=== PATIENT | female | born 1965 | race Caucasian/White ===

== ENCOUNTER 2023-01-23 09:53 | Outpatient (CLI) | payer OTHER, SELFPAY ==
--- NOTE | 2023-01-23 11:16 | W.ANESCHARGE ---
Anesthesia Charges Start Date/Time Anesthesia Start Date: 01/23/23 Anesthesia Start Time: 10:47 Stop Date/Time Anesthesia Stop Date: 01/23/23 Anesthesia Stop Time: 11:17
--- NOTE | 2023-01-23 11:38 | W.ANESCHARGE ---
Anesthesia Charges Start Date/Time Anesthesia Start Date: 01/23/23 Anesthesia Start Time: 10:47 Stop Date/Time Anesthesia Stop Date: 01/23/23 Anesthesia Stop Time: 11:17
== END 2023-01-23 09:54 | disposition home or self-care (01) ==
PROVIDERS: PCP Family Medicine; Visit Provider Internal Medicine Gastroenterology
DX: Z12.11 Encounter for screening for malignant neoplasm of colon (principal); K63.5 Polyp of colon; Z86.010 Personal history of colon polyps
CPT/HCPCS: 00811; 45380; 88305; J2704

== ENCOUNTER 2023-10-12 12:25 | Emergency (ER) | payer BC, SELFPAY ==
[2023-10-12 12:52] VITALS: BP 146/85; PULSE 84; RESP 18; TEMP 37.1; O2SAT 100; BMI 42.9
--- NOTE | 2023-10-12 13:04 | ED_ITS ---
HPI - General Adult General Date Seen: 10/12/23 Chief complaint: Extremity Pain/Injury, Lower Stated complaint: LT knee pain Time Seen by Provider: 10/12/23 12:40 History of Present Illness HPI narrative: Pleasant 58-year-old female with a history of headaches, colon polyps, presbyopia, allergic rhinitis presenting to the ER today with left leg pain. She is concerned about possible DVT. She recalls that she did have an injury to her left knee a month or perhaps a little bit longer ago, around the time of 23 August) where she twisted it. She was having some left knee pain but was trying to let it heal on its own. It is largely gotten better in her left knee was back to normal. Since last night, without any new trauma, she has noted increasing pain and swelling especially in the popliteal fossa of her left knee with pain also radiating from there up into her left hamstring and down into her left calf. She has no recent trauma. She has not had any redness or warmth of the knee. No fever or chills. The no recent travel or immobilization. She recalls that she has a family history of DVTs in both her mother and her brother, but does not know of any specific inheritable hypercoagulability. She is worried about DVT. No history of gout. No pain in her hip or ankle. No other swollen joints. No rashes. Related Data Home Medications ?Medication ?Instructions ?Recorded ?Confirmed rizatriptan 10 mg tablet PO 10/12/23 Previous Rx's ?Medication ?Instructions ?Recorded hydrocodone 5 mg-acetaminophen 325 1 tab PO Q4-6H PRN pain #10 tabs 10/12/23 mg tablet Allergies Allergy/AdvReac Type Severity Reaction Status Date / Time No Known Drug Allergies Allergy Verified 10/12/23 12:58 PFSH PFSH Social History Smoking Status: Never smoker Do you use any of these nicotine containing products: None How often do you have a drink containing alcohol: monthly or less AUDIT-C Alcohol total score: 1 Non-prescribed substance use: denies use Exam Narrative: Exam Narrative: Constitutional: Appears well-developed and well-nourished. Active. Non-toxic appearing. Sitting up in her wheelchair. Has discomfort in her left knee and hurts to bend it or bear weight on it. She is able to transfer herself from her wheelchair to the chair in ER room for for exam. Her left knee is able to go from 90? flexion to full extension. HENT: Head: Atraumatic. No signs of injury. Nose: No nasal discharge. Mouth/Throat: Mucous membranes are moist. Phonation normal. No trismus. Airway patent. Eyes: Conjunctivae normal and EOM are normal. Pupils are equal, round, and reactive to light. Right eye exhibits no discharge. Left eye exhibits no discharge. No icterus. Neck: Normal range of motion. Neck supple. No adenopathy. No stridor. Cardiovascular: Normal rate and regular rhythm. No murmur heard. No murmurs, rubs, or gallops. Brisk capillary refill Pulmonary/Chest: Effort normal. No stridor. No respiratory distress. No wheezes.No rhonchi. No rales. N Musculoskeletal: Upper extremities-Normal range of motion. No edema. No tenderness. No deformity. Right lower extremity- Normal range of motion. No edema. No tenderness. No deformity. Low back nontender. No rash. No bruising. Pelvis is stable. Left lower extremity: Hip is nontender. Quadriceps, femur, and proximal hamstring are nontender. Knee: Normal inspection. No joint effusion. No redness. No warmth. No bruising. No anterior tenderness. No tenderness over the proximal fibula or tibia. She does have tenderness in the popliteal fossa but there is no swelling or any pulsatile mass there. Also mild tenderness in the very distal hamstring and proximal gastrocnemius. No swelling of the calf. No palpable cords. Achilles nontender. Ankle, foot are nontender. Strong and symmetric DP and PT pulses. Normal symmetric bilateral lower extremity cap refill. Neurological: Alert. Normal strength. No cranial nerve deficit or sensory deficit. Coordination normal. GCS eye subscore is 4. GCS verbal subscore is 5. GCS motor subscore is 6. Intact sensory function bilaterally in the L4, L5, S1 dermatomes. 5/5 strength bilaterally in the hip flexors, quadriceps, hamstring, gastrocnemius, tibialis anterior, EHL. Skin: Skin is warm. No rash noted. Const: Vital Signs, click to edit/add: Vital Signs - 24 hr 10/12/23 12:52 10/12/23 14:41 Temperature 98.8 F Pulse Rate [Pulse Oximeter] 84 78 Respiratory Rate 18 18 [facility] 146/85 H 144/83 H Pulse Oximetry 100 94 Oxygen Delivery Me thod Room Air Room Air Course Vital Signs Vital signs: Initial Vital Signs Temperature 98.8 F 10/12/23 12:52 Temperature Source Temporal Artery Scan 10/12/23 12:52 Pulse Rate 84 10/12/23 12:52 Respiratory Rate 18 10/12/23 12:52 Blood Pressure 146/85 H 10/12/23 12:52 Blood Pressure Mean 105 10/12/23 12:52 Blood Pressure Position Sitting 10/12/23 12:52 Pulse Oximetry 100 10/12/23 12:52 Oxygen Delivery Method Room Air 10/12/23 12:52 Vital Signs Temperature 98.8 F 10/12/23 12:52 Pulse Rate 84 10/12/23 12:52 Respiratory Rate 18 10/12/23 12:52 Blood Pressure 146/85 H 10/12/23 12:52 Pulse Oximetry 100 10/12/23 12:52 Oxygen Delivery Method Room Air 10/12/23 12:52 Temperature 98.8 F 10/12/23 12:52 Pulse Rate 78 10/12/23 14:41 Respiratory Rate 18 10/12/23 14:41 Blood Pressure 144/83 H 10/12/23 14:41 Pulse Oximetry 94 10/12/23 14:41 Oxygen Delivery Method Room Air 10/12/23 14:41 Medications Administered Medications: Discontinued Medications Generic Name Dose Route Start Last Admin Trade Name Freq PRN Reason Stop Dose Admin Acetaminophen 1,000 mg 10/12/23 15:00 10/12/23 15:06 Acetaminophen 500 Mg Tablet PO 10/12/23 15:01 1,000 mg ONCE ONE Administration Medical Decision Making [facility] Narrative Medical decision making narrative: A pleasant 58-year-old female presenting to the ER today for atraumatic left posterior knee pain, left calf pain and little bit of pain in her left distal thigh. She does have history of trauma a month or 2 ago but had been healing. Now and re-exacerbate villalobos of pain without any trauma since yesterday and overni ght. Ultrasound is negative for DVT. Clinical exam shows no evidence for joint effusion, redness or warmth the knee to suggest a septic arthritis or gouty arthritis. No evidence for compartment syndrome, infection, limb ischemia. X- rays are negative for fracture. No evidence for arthritis. Ligamentous exam is limited by pain today so I cannot completely rule out possibility for a ligamentous injury or meniscal injury. However ultrasound is positive for a fluid collection in the popliteal fossa suggestive of Mcdowell cyst which is likely the cause for the patient's pain. Plan will be to discharge home. Tylenol or NSAIDs for pain control. Prescription for [place] provided for breakthrough pain. Opiate precautions reviewed. Follow up with the [facility] the ortho clinic. Imaging Data US LE Left: Attestation: I have reviewed the pertinent imaging results. Radiologist's impression: IMPRESSION: No left lower extremity DVT. Incidental 3.2 centimeter popliteal fossa cyst. XR Left Knee: Attestation: I have reviewed the pertinent imaging results. Radiologist's impression: Impression: No sign of acute injury. Discharge Plan Discharge Clinical Impression: Mcdowell's cyst Patient Disposition: Home, Self-Care Condition: Stable Instructions: Mcdowell Cyst (ED) Additional Instructions: Please follow-up with the [facility] within 1 week. If you need to reschedule your appointment you can call [phone] to talk to the orthopedic clinical rehabilitation liaison. Use the crutches and knee brace to help with comfort. Use Tylenol or nonsteroidal anti-inflammatories for pain. Use the prescription pain killer at night if needed but use caution with pain killer because it can cause dizziness, drowsiness, constipation and can be addictive. Return to the ER right away if you have any problems such as increasing sw elling, redness of the knee, fever, or worsening pain. Prescriptions: New hydrocodone-acetaminophen 5-325 mg tablet 1 tab PO Q4-6H PRN (Reason: pain) Qty: 10 0RF No Action rizatriptan 10 mg tablet PO Follow Up/Referrals: Mei Nails DO [Primary Care Provider] - Stand Alone Forms: [employer] Info Instructions
--- NOTE | 2023-10-12 13:20 | CRLHL7_ITS ---
For Patients: As a result of the Century Cures Act, medical imaging exams and procedure reports are released immediately into your electronic medical record. You may view this report before your referring provider. If you have questions, please contact your health care provider. INDICATION: Leg pain and swelling. TECHNIQUE: Ultrasound venous duplex lower left extremity. Compression venous exam was performed using cerda-scale, color Doppler, and spectral Doppler analysis. COMPARISON: None. FINDINGS: Deep veins: Sonographic imaging demonstrates the left common femoral, deep femoral, superficial femoral, popliteal, posterior tibial and the contralateral right common femoral veins to be fully compressible with normal color Doppler blood flow. Superficial veins: Greater saphenous vein is fully compressible. Incidental 3.2 x 2.2 x 1.2 centimeter popliteal fossa cyst. IMPRESSION: No left lower extremity DVT. Incidental 3.2 centimeter popliteal fossa cyst. Dictated by Bryn White MD @ 10/12/2023 2:21:35 PM (Electronically Signed)
--- NOTE | 2023-10-12 13:20 | CRLHL7_ITS ---
For Patients: As a result of the Century Cures Act, medical imaging exams and procedure reports are released immediately into your electronic medical record. You may view this report before your referring provider. If you have questions, please contact your health care provider. Indication: Knee pain. Technique: Left knee 3 views Comparison: None Findings: Bones: Alignment is normal. No fractures or bone lesions. Joint spaces: No joint effusion. Likely mild tricompartmental osteophytosis. Soft tissues: Unremarkable. Impression: No sign of acute injury. Dictated by Arturo Denise MD @ 10/12/2023 2:45:37 PM (Electronically Signed)
[2023-10-12 14:41] VITALS: BP 144/83; PULSE 78; RESP 18; O2SAT 94
[2023-10-12] MEDS: ACETAMINOPHEN 500 MG TABLET 1000 MG PO (15:06)
== END 2023-10-12 16:15 | disposition home or self-care (01) ==
PROVIDERS: Emergency Provider Emergency Medicine; PCP Family Medicine
DX: M71.22 Synovial cyst of popliteal space [Baker], left knee (principal)
CPT/HCPCS: 73562; 93971; 99282; 99284; A9270

== ENCOUNTER 2023-10-27 13:33 | Outpatient (CLI) | payer BC, SELFPAY ==
--- NOTE | 2023-10-27 13:45 | MR_ITS ---
[facility] [address] [facility] [address] Phone:?[phone] Fax:?[phone] Referring Physician Information: Dmitri Washington M.D. [address] [place] [id number] Phone:?[phone] Fax:?[phone] Patient:?Kandis Gee D.O.B:?1965 Sex:?Female Phone:?[phone] [facility] MRN:?[id number] Exam Date:?10/27/2023 EXAM: MRI of the LEFT KNEE, without contrast CLINICAL: Female, 58 years old, with medial left knee pain. INDICATION: Evaluate for medial meniscus tear versus other knee internal derangement etiology. PRIOR SURGERY: None reported. PLAIN FILMS: 10/12/2023 radiographic series of the left knee. COMPARISONS: No prior MRIs available. TECHNICAL: Using a 1.5 Hyun MR scanner and a localizing surface coil: 3.0 mm?sagittals: PD, PDFS 3.0 mm?coronals: PD, STIR 3.0 mm?axials: PD, T2FS SEDATION: None. CONTRAST: None. IMPRESSION: 1. Complete tear/disruption of the posterior root tibial attachment medial meniscus with moderate towards marked peripheral extrusion documenting decrease, perhaps loss, of normal medial meniscal load-sharing function. 2. 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 3. 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 4. Moderate knee effusion. 5. No lateral meniscus tear 6. No cruciate or collateral ligament injuries. FINDINGS: Knee joint: Effusion: Moderate knee effusion. Popliteal cyst: None. Loose bodies: None. Subcutaneous and extra-articular soft tissues: Unremarkable. Ligaments: ACL: Intact and normal. PCL: Intact and normal. MCL: Intact and normal. FCL: Intact and normal. Posterolateral corner: Intact popliteus, biceps femoris, iliotibial band, popliteofibular ligament and lateral gastrocnemius. Posteromedial corner: Intact pes anserinus and posterior oblique ligament. Extensor mechanism: Patellar tendon: Intact and normal. Quadriceps tendon: Intact and normal. Retinacula: Intact and normal. Fat pads: Unremarkable. Medial compartment: Medial meniscus: Focal complete tear/disruption of the posterior root tibial attachment of the medial meniscus (coronal images 23-24; sagittal images 13-15; axial image 22). Moderate towards marked 4 mm of peripheral meniscal extrusion (coronal image 20). Medial femoral condyle: Very localized grade II-III chondromalacia of the central weight-bearing medial femoral condyle is not associated with subjacent reactive marrow edema (coronal images 22-16) Medial tibial plateau: No demonstrable chondromalacia. Lateral compartment: Lateral meniscus: Intact and normal. Lateral femoral condyle: No demonstrable chondromalacia. Lateral tibial plateau: No demonstrable chondromalacia. Patellofemoral joint: Patella: Approximately 20 x 15 mm grade II-III chondromalacia perhaps much more focal grade IV, chondromalacia/thinning of the median ridge and adjacent lateral facet of the patella is not associated with subjacent reactive marrow edema. Trochlea: Rather broad-based approximately 25 x 20 mm grade II-III chondromalacia, and perhaps more localized grade IV, chondromalacia/thinning and some irregularity of the lateral into central femoral trochlea is accompanied by very small small foci of slight subjacent reactive marrow edema (axial images 15-19; sagittal images 23-16). Proximal tibiofibular joint: Unremarkable. Bones: No other marrow edema or fractures. Neurovascular: Popliteal artery/vein: Normal. Anterior tibial artery: No aberrant variant. Tibial nerve: Normal. Popliteal nerve: Normal. Common peroneal nerve: Normal. [facility] Electronically signed on 10/29/2023 8:43:00 AM by Karl Archuleta M.D.
== END 2023-10-27 13:34 | disposition home or self-care (01) ==
LOC: MRI 13:34
PROVIDERS: PCP Family Medicine; Visit Provider Orthopaedic Surgery
DX: M25.562 Pain in left knee (principal); S83.222A Peripheral tear of medial meniscus, current injury, left knee, initial encounter; M94.262 Chondromalacia, left knee; M17.12 Unilateral primary osteoarthritis, left knee; M25.462 Effusion, left knee
CPT/HCPCS: 73721

== ENCOUNTER 2023-12-14 09:47 | Day surgery (SDC) | payer BC, SELFPAY ==
[2023-12-14] VITALS (19 sets, daily range): BP systolic 98–141; BP diastolic 55–94; PULSE 64–81; RESP 12–22; TEMP 36.4–37.2; O2SAT 93–99; BMI 43.7
[2023-12-14] MEDS: SODIUM CHLORIDE 0.9 % (FLUSH) 10 ML SYRINGE IVF (10:29)
--- NOTE | 2023-12-14 12:47 | P.ORPRC_ITS ---
Procedure Note Date of procedure: 12/14/23 Procedure: PREOPERATIVE DIAGNOSIS: Left knee medial meniscus root tear POSTOPERATIVE DIAGNOSIS: Left knee medial meniscus root tear NAME OF OPERATION: Left knee arthroscopic medial meniscus root repair, microfracture of the notch SURGEON: Dmitri Washington MD [employer] OPERATOR: NEIDA Rose ANESTHESIA: Spinal ESTIMATED BLOOD LOSS: 0 mL COMPLICATIONS: None SPECIMENS: None DRAINS: None PREOPERATIVE ANTIBIOTICS: Ancef 2 gram INDICATIONS: The patient is a 58-year-old female with a history of left knee medial pain. MRI scan is consistent with a medial meniscus root tear. Despite appropriate nonoperative management, including activity modification, antiinflammatories, [id number] pain medication, bracing, physical therapy, and injections they continue to have pain and disability. Operative intervention was offered. The risks, benefits and expected outcomes were discussed in detail. These included but were not limited to: Infection, bleeding, injury to blood vessel or nerve, venous thromboembolism. All questions were answered to their satisfaction. PROCEDURE: Spinal anesthesia was administered. The patient was placed supine on the operating room table. The left lower extremity was prepped and draped in the usual sterile fashion. The limb was exsanguinated with the Yemi bandage. The pneumatic tourniquet was inflated to 300 mmHg. A standard anterolateral portal was established. The arthroscope was introduced. The working portal was established anteromedially. Diagnostic arthroscopy was performed with findings as follows: The suprapatellar pouch is normal. Articular surface on the patella shows diffuse grade 2 change. Articular surface on the trochlea shows focal grade 3 change centrally. The medial gutter is normal. The medial compartment shows diffuse grade 3 change on the medial femoral condyle, grade 2 change on the medial tibial plateau. The medial meniscus has a radial tear from the leading edge to the capsule at the posterior tibial attachment (root tear). There is h orizontal cleavage tearing of the posterior horn of the medial meniscus. The notch shows the ACL to be intact. The lateral compartment shows normal articular cartilage on the lateral femoral condyle and lateral tibial plateau. The lateral meniscus is normal. The lateral gutter is normal. The undersurface of the posterior horn of the medial meniscus was debrided to a stable base using the shaver. Unstable chondral flaps on the medial femoral condyle were debrided with the shaver through both portals, taken to a stable base. The knee scorpion was used to pass a fiber link x 2 in the posterior horn of the medial meniscus. The tibial drill guide was used over the footprint of the root. A longitudinal incision over the anteromedial face of the tibia was placed. The flip cutter was drilled into the footprint. The flip cutter was flipped and back cut 10 mm. It was removed and exchanged for a fiber stick. The fiber stick was brought out the anteromedial portal and was used to shuttle both of the fiber link luggage tag sutures on the posterior horn out the anteromedial tibia. We then tensioned the sutures and fixed them to the tibia with a SwiveLock anchor. This provided an excellent repair of the posterior tibial attachment of the medial meniscus to its anatomic footprint. The power pick was used to microfracture the notch both medially and laterally. Arthroscopic instruments were removed, the portal sites were Steri-Stripped closed, the incision over the tibia was closed with 3-0 Vicryl and 4-0 Monocryl. A dry dressing was applied, the tourniquet was released. Sponge and needle counts were correct x 2. The patient tolerated the procedure well. There were no apparent complications. They were carefully transferred to the hospital bed and taken to the postan esthesia care unit in satisfactory condition. PLAN: The patient will be discharged to home. They will be protected weight- bearing on the lower extremity for 6 weeks postoperatively. No deep squatting, no planting, pivoting or twisting. Range of motion will be allowed from 0-90 degrees x 2 weeks then unrestricted range of motion. They will follow up in 2 weeks for a wound check.
--- NOTE | 2023-12-14 13:12 | P.NB_ITS ---
Nerve Block Nerve Block Time Seen by Provider: 13:00 Date Seen: 12/14/23 Type of block requested by surgeon for post-operative analgesia: geniculars Side: left Time out performed: Yes Verification of patient name: Yes Verification of date of : Yes Site marking: site marked Name of person performing procedure: Satya Kirk Continuous monitoring Was continuous monitoring of O2 sat, B/P, quality assurance monitor body, recorded every 15 minutes?: Yes Procedure Checklist: sterile prep, needles and gloves Ultrasound guided. Images saved: No Medications given in 5ml increments after negative aspiration: Ropivicaine %: 0.5 mL: 12 Needle gauge: 25 Patient tolerated procedure well: Yes Additional comments: Injected in 4ml increments after negative aspiration Block Charges Block Charge (with Pro Fee): Genicular Nerve Block Use of Ultrasound Machine for Block: No
--- NOTE | 2023-12-14 13:12 | W.ANESCHARGE ---
Anesthesia Charges Start Date/Time Anesthesia Start Date: 12/14/23 Anesthesia Start Time: 11:32 Stop Date/Time Anesthesia Stop Date: 12/14/23 Anesthesia Stop Time: 13:06
[2023-12-14] MEDS: fentaNYL 100 MCG/2 ML inj 50 MCG IVP ×3 (13:31→13:51)
--- NOTE | 2023-12-14 14:22 | W.ANESCHARGE ---
Anesthesia Charges Start Date/Time Anesthesia Start Date: 12/14/23 Anesthesia Start Time: 11:32 Stop Date/Time Anesthesia Stop Date: 12/14/23 Anesthesia Stop Time: 13:06
[2023-12-14] MEDS: OxyCODONE/APAP 5-325 TABLET PO (14:30)
== END 2023-12-14 15:31 | disposition home or self-care (01) ==
LOC: OR 09:49
PROVIDERS: PCP Family Medicine; Visit Provider Orthopaedic Surgery
PROC: (CPT 29882; principal; 2023-12-14 11:00)
DX: S83.242A Other tear of medial meniscus, current injury, left knee, initial encounter (principal); G89.18 Other acute postprocedural pain
CPT/HCPCS: 29882; 29879; 01400; 64454; A9270; C1713; J0665; J1100; J2250; J2371; J2405; J2704; J3010